=== PATIENT | female | born 1930 | race Caucasian/White ===

== ENCOUNTER 2017-10-03 07:48 | Emergency (ER) | payer OTHER ==
[~2017-10-03] VITALS: Ht 160 cm; Wt 56.7 kg
[2017-10-03] MEDS ORDERED: TIROSINT100 MCG (08:36)
[2017-10-03] MEDS ORDERED: SIMVASTATIN10 MG (08:36)
[2017-10-03] MEDS ORDERED: COZAAR100 MG (08:36)
[2017-10-03] MEDS ORDERED: MEMANTINE HCL10 MG (08:37)
[2017-10-03] MEDS ORDERED: LEVAQUIN500 MG PO (13:04)
[2017-10-03] MEDS ORDERED: TUSSI PRES-B L120 M1 PO (13:04)
[2017-10-03] MEDS ORDERED: MEDROLPACK PO (13:04)
== END 2017-10-03 13:34 | disposition home or self-care (01) ==
LOC: ER 07:48
DX: J06.9 Acute upper respiratory infection, unspecified (principal); J11.1 Influenza due to unidentified influenza virus with other respiratory manifestations